=== PATIENT | male | born 1955 | race Caucasian/White ===

== ENCOUNTER 2017-06-12 09:36 | Emergency (ER) | payer OTHER ==
[~2017-06-12] VITALS: Ht 185.4 cm; Wt 88.6 kg
[~2017-06-12 09:36] MED LIST: HYDR-3129 PO
[2017-06-12 09:44] VITALS: BP 149/76; PULSE 106; RESP 18; TEMP 98; O2SAT 95
[2017-06-12] MEDS ORDERED: HYDR-3533 PO (09:54)
[2017-06-12] MEDS ORDERED: PERM5CRE11 TOPICAL (10:10)
[2017-06-12] MEDS ORDERED: PRED20 PO (10:10)
--- NOTE | 2017-06-12 10:11 | PD ---
HPI Chief Complaint: Skin Problem Time Seen by Provider: 09:55 Travel History International Travel<30 days: No Contact w/Intl Traveler<30days: No Traveled to known affect area: No History of Present Illness HPI 61 year old male here with complaint of scabies rash & pruritus. He reports multiple reinfestations of scabies since March. he reports this rash is similar to the previous scabies rash. He denies fever, chills, headache, neck pain. Symptoms severity mild. no alleviating factors. PFSH Past Medical History Arthritis: Yes (spine, knee ) Cancer: No Cardiovascular Problems: No Diabetes: No Diminished Hearing: No Diverticulitis: Yes Endocrine: No GERD: No Genitourinary: No Hepatitis: No Hiatal Hernia: No Immune Disorder: No Musculoskeletal: Yes (LUMBAR PAIN) Neurologic: No Psychiatric: No Reproductive: No Respiratory: No Immunizations Current: Yes Thyroid Disease: No Ulcer: No Past Surgical History Abdominal Surgery: Yes (APPY) AICD: No Body Medical Devices: LEFT SI JOINT PINS Cardiac Surgery: No Ear Surgery: No Endocrine Surgery: No Eye Surgery: No Genitourinary Surgery: No Joint Replacement: No Oral Surgery: No Pacemaker: No Thoracic Surgery: No Social History Alcohol Use: No (occ) Tobacco Use: No (cigars- occ) Substance Use: No Allergies-Medications (Allergen,Severity, Reaction): Coded Allergies: No Known Allergies (Verified Adverse Reaction, Unknown, 06/12/17) Reported Meds & Prescriptions Reported Meds & Active Scripts Active Prednisone 20 Mg Tab 40 Mg PO DAILY Take 40 mg (2 tablets) daily for 5 days Elimite Topical (Permethrin) 5% Cream 1 Applic TOPICAL ONCE Reported Lortab (Hydrocodone-Acetaminophen) 5-325 Mg Tab 1 Tab PO Q8HR PRN Review of Systems Except as stated in HPI: all other systems reviewed are Neg Physical Exam Narrative GENERAL: alert well appearing male SKIN: Warm and dry. diffuse erythematous rash on trunk/groin/lower extremities consistent with scabies rash. no sign of infection. HEAD: Normocephalic. EYES: No scleral icterus. No injection or drainage. NECK: Supple, trachea midline. No JVD or lymphadenopathy. CARDIOVASCULAR: Regular rate and rhythm without murmurs, gallops, or rubs. RESPIRATORY: Breath sounds equal bilaterally. No accessory muscle use. Data Data Last Documented VS Vital Signs Date Time Temp Pulse Resp B/P (MAP) Pulse Ox O2 Delivery O2 Flow Rate FiO2 06/12/17 09:44 98.0 106 18 149/76 (100) 95 MDM Medical Decision Making Medical Screen Exam Complete: Yes Emergency Medical Condition: Yes Differential Diagnosis SCABIES RASH, CONTACT DERMATITIS, OTHER Narrative Course 61 year old male here with complaint of scabies rash & pruritus. He reports multiple reinfestations of scabies since March. He will be treated with prednisone & elimite. Diagnosis Primary Impression: Scabies Referrals: Test Carrier Additional Instructions: make an appointment for F/U with corporate development intern. Scripts Prednisone (Prednisone) 20 Mg Tab 40 MG PO DAILY, #10 TAB 0 Refills Take 40 mg (2 tablets) daily for 5 days Prov: Mirian Soto 06/12/17 Permethrin Topical (Elimite Topical) 5% Cream 1 APPLIC TOPICAL ONCE for Scabies, #1 TUBE 0 Refills Prov: Mirian Soto 06/12/17 Disposition: 01 DISCHARGE HOME Condition: Stable Mirian Soto Jun 12, 2017 10:11
== END 2017-06-12 10:26 | disposition home or self-care (01) ==
LOC: PHEFT 09:36
DX: B86 Scabies (principal); Z87.39 Personal history of other diseases of the musculoskeletal system and connective tissue; Z87.19 Personal history of other diseases of the digestive system
CPT/HCPCS: 99284